=== PATIENT | male | born 1990 | race Caucasian/White ===

== ENCOUNTER 2017-06-05 23:29 | Emergency (ER) | payer OTHER, BC ==
[~2017-06-05] VITALS: Ht 180.3 cm; Wt 74.8 kg
[2017-06-06] MEDS ORDERED: Cyclobenzaprine5 MG PO (00:24)
[2017-06-06] MEDS ORDERED: Zofran Odt4 MG SL (00:24)
[2017-06-06] MEDS ORDERED: Norco 10-325 T1 EACH PO (00:24)
== END 2017-06-06 00:32 | disposition home or self-care (01) ==
LOC: ER 23:29
DX: S80.02XA Contusion of left knee, initial encounter (principal); S90.02XA Contusion of left ankle, initial encounter; S90.32XA Contusion of left foot, initial encounter; V53.5XXA Driver of pick-up truck or van injured in collision with car, pick-up truck or van in traffic accident, initial encounter
CPT/HCPCS: 73562-LT; 73600; 99283